=== PATIENT | female | born 1940 | race Caucasian/White ===

== ENCOUNTER 2018-06-07 10:19 | Emergency (ER) | payer MEDICARE, OTHER ==
[~2018-06-07] VITALS: Ht 162.6 cm; Wt 82.7 kg
[2018-06-07] MEDS ORDERED: proparacaine 0.5% ophthalmic drops 15ml EACHEYE ONE (11:05)
[2018-06-07] MEDS ORDERED: HYDROcodone/acetaminophen 10/325mg tab PO ONE (11:10)
[2018-06-07] MEDS ORDERED: erythromycin ophthalmic ointment 1gm tube LEFTEYE ONE (11:10)
[2018-06-07] MEDS ORDERED: ERYT1OIN6 LEFTEYE (11:11)
[2018-06-07] MEDS ORDERED: HYDR-4383 PO (11:12)
[2018-06-07 11:49] VITALS: BP 167/96
== END 2018-06-07 11:52 | disposition home or self-care (01) ==
LOC: ER 10:19
DX: S05.02XA Injury of conjunctiva and corneal abrasion without foreign body, left eye, initial encounter (principal); E78.00 Pure hypercholesterolemia, unspecified; J45.909 Unspecified asthma, uncomplicated; E11.9 Type 2 diabetes mellitus without complications; W22.8XXA Striking against or struck by other objects, initial encounter; Y93.89 Activity, other specified; Y92.89 Other specified places as the place of occurrence of the external cause; Y99.8 Other external cause status
CPT/HCPCS: 99284

== ENCOUNTER 2018-11-08 15:36 | Emergency (ER) | payer MEDICARE, OTHER ==
[~2018-11-08] VITALS: Ht 162.6 cm; Wt 90.0 kg
[~2018-11-08 15:36] MED LIST: HYDR-4383 PO
[2018-11-08 15:53] VITALS: BP 148/73
[2018-11-08 16:37] LABS: BASOPHILS # (AUTO) 0.1 X10'3 (0-0.2); BASOPHILS % (AUTO) 0.8 % (0-1); EOSINOPHILS # (AUTO) 0.2 X10'3 (0-0.9); EOSINOPHILS % (AUTO) 2.5 % (0-6); HEMATOCRIT 42.1 % (35.0-45.0); HEMOGLOBIN 14.6 g/dl (12.0-16.0); LYMPHOCYTES # (AUTO) 1.9 X10'3 (1.1-4.8); LYMPHOCYTES % (AUTO) 23.2 % (21-51); MEAN CORPUSCULAR HGB CONC 34.6 g/dL (33.0-36.5); MEAN CORPUSCULAR VOLUME 92.5 FL (78-98); MEAN PLATELET VOLUME 8.6 FL (7.4-10.4); MONOCYTES # (AUTO) 0.7 X10'3 (0-0.9); MONOCYTES % (AUTO) 9.2 % (2-12); NEUTROPHILS # (AUTO) 5.2 X10'3 (1.8-7.7); NEUTROPHILS % (AUTO) 64.3 % (42-75); PLATELET COUNT 239 X10'3 (140-440); RED BLOOD COUNT 4.55 X10'6 (4.20-5.60); RED CELL DISTRIBUTION WIDTH 15.4 % (11.5-14.5); WHITE BLOOD COUNT 8.1 X10'3 (4.5-11.0)
[2018-11-08 16:47] LABS: ALANINE AMINOTRANSFERASE 24 U/L (12-78); ALBUMIN 3.4 G/DL (3.4-5.0); ALBUMIN/GLOBULIN RATIO 0.8 (1.1-1.5); ALKALINE PHOSPHATASE 100 IU/L (46-116); ANION GAP 11 (8-16); ASPARTATE AMINO TRANSFERASE 15 U/L (10-37); BILIRUBIN,TOTAL 0.1 MG/DL (0.1-1.0); BLOOD UREA NITROGEN 18 MG/DL (7-18); BUN/CREATININE RATIO 24.3 (6.6-38.0); CALCIUM 8.9 MG/DL (8.5-10.1); CHLORIDE 105 MMOL/L (99-107); CREATININE 0.74 MG/DL (0.40-0.90); GLUCOSE 113 MG/DL (70-104); POTASSIUM 3.9 MMOL/L (3.5-5.1); SODIUM 140 MMOL/L (135-145); TOTAL CARBON DIOXIDE 23.8 MMOL/L (24-32); TOTAL PROTEIN 7.5 G/DL (6.4-8.2); eGFR 77 ML/MIN
[2018-11-08 16:57] LABS: PROTHROMBIN TIME 10.1 SECONDS (9.0-12.0)
[2018-11-08 17:03] LABS: CLARITY,URINE SLIGHTLY CLOUDY (Clear); COLOR,URINE YELLOW (Yellow); GLUCOSE, URINE NEGATIVE (Neg); KETONES,URINE NEGATIVE (Neg); LEUKOCYTE ESTERASE ,URINE NEGATIVE (Neg); NITRITES, URINE POSITIVE (Neg); OCCULT BLOOD,URINE NEGATIVE (Neg); PH,URINE 5.5 (4.8-8.0); PROTEIN,URINE NEGATIVE (Neg); UROBILINOGEN,URINE 0.2 E.U/dL (0.2-1.0)
[2018-11-08 17:04] LABS: UA COLLECTION TYPE CLN CATCH MIDSTREAM
[2018-11-08 17:13] LABS: MUCUS STRANDS MODERATE /LPF (Neg); SQUAMOUS EPITHELIAL CELL,UR MANY /LPF (FEW)
[2018-11-08 17:14] LABS: BACTERIA,URINE 4+ /HPF (Neg); RBC,URINE 0-2 /HPF (0-2); WBC,URINE 0-4 /HPF (0-4)
--- NOTE | 2018-11-08 19:30 | NUR ---
STAFF REPORTS PT LWOBS FROM [facility], IT WAS EXPLAINED THAT SHE WAS NEXT TO BE BROUGHT BACK, hOWEVER REPORTED SHE WAS GOING TO [facility]. DR LAURA INFORMED.
== END 2018-11-08 19:30 | disposition left against medical advice (07) ==
LOC: ER 15:37
DX: R10.9 Unspecified abdominal pain (principal); R11.0 Nausea; Z53.21 Procedure and treatment not carried out due to patient leaving prior to being seen by health care provider
CPT/HCPCS: 36415; 80053; 81001; 85025; 85610

== ENCOUNTER 2022-01-31 09:46 | Day surgery (SDC) | payer MEDICARE, OTHER ==
[2022-01-31] VITALS (13 sets, daily range): BP systolic 117–167; BP diastolic 64–119
[~2022-01-31] VITALS: Ht 162.6 cm; Wt 80.5 kg
[~2022-01-31 09:46] MED LIST changes: +iohexol 350MG/ML 100ml bottle IV ONE
[2022-01-31] MEDS ORDERED: sodium bicarbonate (8.4%) inj. 150 ML in dextrose 5%-water 1,000 ML IV ONE (10:20)
[2022-01-31] MEDS ORDERED: normal saline 1,000 ML IV SCH (10:20)
[2022-01-31] MEDS ORDERED: diphenhydrAMINE 25mg capsule PO PRN (10:20)
[2022-01-31] MEDS ORDERED: LEVO112T52 PO (10:39)
[2022-01-31] MEDS ORDERED: FAMO40TA58 PO (10:39)
[2022-01-31] MEDS ORDERED: PER5325T PO (10:39)
[2022-01-31] MEDS ORDERED: EZET10TA48 PO (10:39)
[2022-01-31] MEDS ORDERED: LIRA0.6P2 SQ (10:39)
[2022-01-31] MEDS ORDERED: [UNRECOGNIZED DRUG - OTHER] (10:41)
[2022-01-31] MEDS ORDERED: DICY10CA88 PO (10:42)
[2022-01-31] MEDS ORDERED: ASPI-1265 PO (10:42)
[2022-01-31 10:49] LABS: BASOPHILS % (AUTO) 0.6 % (0-1); EOSINOPHILS # (AUTO) 0.2 X10'3 (0-0.9); EOSINOPHILS % (AUTO) 2.1 % (0-6); HEMOGLOBIN 15.1 g/dl (12.0-16.0); LYMPHOCYTES # (AUTO) 1.8 X10'3 (1.1-4.8); LYMPHOCYTES % (AUTO) 23.4 % (21-51); MEAN CORPUSCULAR HEMOGLOBIN 33.2 PG (27.0-31.0); MEAN CORPUSCULAR HGB CONC 34.3 g/dL (33.0-36.5); MEAN CORPUSCULAR VOLUME 96.6 FL (78-98); MEAN PLATELET VOLUME 8.7 FL (7.4-10.4); MONOCYTES # (AUTO) 0.7 X10'3 (0-0.9); NEUTROPHILS % (AUTO) 64.9 % (42-75); PLATELET COUNT 263 X10'3 (140-440); RED BLOOD COUNT 4.56 X10'6 (4.20-5.60); RED CELL DISTRIBUTION WIDTH 13.3 % (11.5-14.5); WHITE BLOOD COUNT 7.6 X10'3 (4.5-11.0)
[2022-01-31 10:58] LABS: ALBUMIN 3.8 G/DL (3.4-5.0); ANION GAP 9 (8-16); BLOOD UREA NITROGEN 11 MG/DL (7-18); BUN/CREATININE RATIO 13.8 (6.6-38.0); CALCIUM 8.9 MG/DL (8.5-10.1); CHLORIDE 105 MMOL/L (99-107); GLUCOSE 95 MG/DL (70-104); MAGNESIUM 1.9 MG/DL (1.5-2.4); POTASSIUM 4.1 MMOL/L (3.5-5.1); SODIUM 139 MMOL/L (135-145); TOTAL CARBON DIOXIDE 25.2 MMOL/L (24-32); eGFR 69 ML/MIN
[2022-01-31] MEDS ORDERED: nitroGLYCERIN-Tridil 50MG/D5W 250 ML IV ONE (12:35)
[2022-01-31] MEDS ORDERED: verapamil 2.5 mg/ml inj IV ONE (12:35)
[2022-01-31] MEDS ORDERED: fentaNYL/PF 50MCG/1 ML 2ML syringe ONE (12:36)
[2022-01-31] MEDS ORDERED: LIDOcaine 1% 30ml preserv. free vial ONE (12:36)
[2022-01-31] MEDS ORDERED: midazolam 1 mg/ML 2ml injection ONE ×4 (12:36→13:34)
[2022-01-31] MEDS ORDERED: heparin 1,000unit/ml 10ml vial 10 ML ONE (12:36)
[2022-01-31] MEDS ORDERED: iohexol 350MG/ML 100ml bottle IV ONE ×2 (13:31→17:00)
[2022-01-31] MEDS ORDERED: clopidogrel 300mg tablet ONE (14:16)
[2022-01-31] MEDS ORDERED: ondansetron/PF 4mg/2ml inj IV PRN (15:55)
[2022-01-31] MEDS ORDERED: proCHLORperazine 10 MG/2 ml inj IV PRN (15:55)
[2022-01-31] MEDS ORDERED: normal saline 1000ml 1,000 ML IV SCH (15:55)
[2022-01-31] MEDS ORDERED: HYDROcodone/acetaminophen 5mg/325mg tablet PO PRN (15:55)
[2022-01-31] MEDS ORDERED: HYDROcodone/acetaminophen 10/325mg tab PO PRN (15:55)
[2022-01-31] MEDS ORDERED: iohexol 350 MG/ML 50ML vial IV ONE (17:00)
== END 2022-01-31 20:30 | disposition home or self-care (01) ==
LOC: SSTAY O 09:46
PROVIDERS: ATTEND Internal Medicine Cardiovascular Disease
DX: R07.9 Chest pain, unspecified (principal); I25.118 Atherosclerotic heart disease of native coronary artery with other forms of angina pectoris; Z79.899 Other long term (current) drug therapy; I66.8 Occlusion and stenosis of other cerebral arteries; I77.1 Stricture of artery; I47.1 Supraventricular tachycardia; I10 Essential (primary) hypertension; E78.5 Hyperlipidemia, unspecified; E03.9 Hypothyroidism, unspecified; E11.9 Type 2 diabetes mellitus without complications; M94.0 Chondrocostal junction syndrome [Tietze]; E66.09 Other obesity due to excess calories; Z88.8 Allergy status to other drugs, medicaments and biological substances; Z98.890 Other specified postprocedural states
CPT/HCPCS: 36415; 80048; 82948; 83735; 85025; 85610; 93005; 93458; 99152; 99153; C1725; C1751; C1760; C1769; C1874; C1894; C9600; C9601; J1644; J2250; J3010; J3490; J7030; Q0163; Q9967; A4620; A6258; A6402; A6449

== ENCOUNTER 2022-04-10 05:08 | Emergency (ER) | payer MEDICARE, OTHER ==
[~2022-04-10] VITALS: Ht 162.6 cm; Wt 79.1 kg
[~2022-04-10 05:08] MED LIST changes: +ASPI-1265 PO; +DICY10CA88 PO; +EZET10TA48 PO; +FAMO40TA58 PO; +LEVO112T52 PO; +LIRA0.6P2 SQ; +PER5325T PO; +[UNRECOGNIZED DRUG - OTHER]; -iohexol 350MG/ML 100ml bottle IV ONE
[2022-04-10] MEDS ORDERED: normal saline 1000ML IV soln IVB ONE (05:25)
[2022-04-10] MEDS ORDERED: metoprolol tartrate 50mg tablet PO ONE (05:55)
[2022-04-10] MEDS ORDERED: metoprolol tartrate 25mg tablet PO ONE (06:05)
[2022-04-10 06:38] LABS: BASOPHILS # (AUTO) 0.1 X10'3 (0-0.2); BASOPHILS % (AUTO) 0.8 % (0-1); EOSINOPHILS # (AUTO) 0.1 X10'3 (0-0.9); EOSINOPHILS % (AUTO) 1.2 % (0-6); HEMOGLOBIN 14.2 g/dl (12.0-16.0); LYMPHOCYTES # (AUTO) 1.3 X10'3 (1.1-4.8); LYMPHOCYTES % (AUTO) 16.9 % (21-51); MEAN CORPUSCULAR HEMOGLOBIN 32.6 PG (27.0-31.0); MEAN CORPUSCULAR HGB CONC 33.7 g/dL (33.0-36.5); MEAN CORPUSCULAR VOLUME 96.7 FL (78-98); MEAN PLATELET VOLUME 8.6 FL (7.4-10.4); MONOCYTES # (AUTO) 0.6 X10'3 (0-0.9); NEUTROPHILS # (AUTO) 5.4 X10'3 (1.8-7.7); NEUTROPHILS % (AUTO) 73.1 % (42-75); PLATELET COUNT 285 X10'3 (140-440); RED BLOOD COUNT 4.34 X10'6 (4.20-5.60); RED CELL DISTRIBUTION WIDTH 13.1 % (11.5-14.5); WHITE BLOOD COUNT 7.4 X10'3 (4.5-11.0)
[2022-04-10 06:39] LABS: GLUCOSE, URINE NEGATIVE (Neg); KETONES,URINE NEGATIVE (Neg); LEUKOCYTE ESTERASE ,URINE NEGATIVE (Neg); NITRITES, URINE NEGATIVE (Neg); OCCULT BLOOD,URINE NEGATIVE (Neg); PH,URINE 7.5 (4.8-8.0); PROTEIN,URINE NEGATIVE (Neg); UROBILINOGEN,URINE 0.2 E.U/dL (0.2-1.0)
[2022-04-10 06:42] LABS: CLARITY,URINE CLEAR (Clear); COLOR,URINE YELLOW (Yellow); UA COLLECTION TYPE CLN CATCH MIDSTREAM
[2022-04-10 06:59] LABS: ALANINE AMINOTRANSFERASE 22 U/L (12-78); ALBUMIN 3.9 G/DL (3.4-5.0); ALBUMIN/GLOBULIN RATIO 0.9 (1.1-1.5); ALKALINE PHOSPHATASE 83 IU/L (46-116); ANION GAP 7 (8-16); ASPARTATE AMINO TRANSFERASE 19 U/L (10-37); BILIRUBIN,TOTAL 0.3 MG/DL (0.1-1.0); BLOOD UREA NITROGEN 12 MG/DL (7-18); CALCIUM 9.1 MG/DL (8.5-10.1); CHLORIDE 101 MMOL/L (99-107); CREATININE 0.75 MG/DL (0.40-0.90); GLUCOSE 106 MG/DL (70-104); POTASSIUM 3.7 MMOL/L (3.5-5.1); SODIUM 136 MMOL/L (135-145); TOTAL CARBON DIOXIDE 28.2 MMOL/L (24-32); TOTAL PROTEIN 8.1 G/DL (6.4-8.2); eGFR 75 ML/MIN
[2022-04-10 07:08] LABS: MAGNESIUM 2.1 MG/DL (1.5-2.4)
[2022-04-10 10:19] VITALS: BP 162/79
== END 2022-04-10 10:00 | disposition home or self-care (01) ==
LOC: ER 05:09
DX: R53.1 Weakness (principal); I11.9 Hypertensive heart disease without heart failure; J44.9 Chronic obstructive pulmonary disease, unspecified; G89.29 Other chronic pain; M54.9 Dorsalgia, unspecified; Z88.6 Allergy status to analgesic agent; Z88.8 Allergy status to other drugs, medicaments and biological substances; Z88.5 Allergy status to narcotic agent; Z91.018 Allergy to other foods; Z79.899 Other long term (current) drug therapy; Z79.82 Long term (current) use of aspirin
CPT/HCPCS: 36415; 71045; 80053; 81003; 83735; 83880; 84145; 84484; 85025; 93005; 99285; J7030; J7040